=== PATIENT | male | born 1965 | race Two or more races ===

== ENCOUNTER 2017-01-15 09:18 | Emergency (ER) | payer OTHER ==
[~2017-01-15] VITALS: Ht 177.8 cm; Wt 86.2 kg
[2017-01-15 09:22] VITALS: BP 114/69
[2017-01-15] MEDS ORDERED: DEXAMETHASONE SOD PHOSPHATE 10 MG/ML VIAL IM ONE (10:30)
[2017-01-15] MEDS ORDERED: ALBUTEROL FS 2.5 MG/3 ML VIAL.NEB NEB ONE (10:30)
[2017-01-15] MEDS ORDERED: DEXAMETHASONE SOD PHOSPHATE 10 MG/ML VIAL ONE (10:30)
[2017-01-15] MEDS ORDERED: ALBUTEROL FS 2.5 MG/3 ML VIAL.NEB ONE (11:08)
== END 2017-01-15 11:53 | disposition home or self-care (01) ==
LOC: ER 09:21
DX: R05 Cough (principal); F12.90 Cannabis use, unspecified, uncomplicated; I10 Essential (primary) hypertension
CPT/HCPCS: 71010; 94640 ×2; 99284; A4606; J1100; Z7610

== ENCOUNTER 2017-01-17 07:18 | Emergency (ER) | payer OTHER ==
[~2017-01-17] VITALS: Ht 177.8 cm; Wt 88.5 kg
[2017-01-17 07:40] VITALS: BP 103/67
== END 2017-01-17 08:24 | disposition home or self-care (01) ==
LOC: ER 07:21
DX: J40 Bronchitis, not specified as acute or chronic (principal)
CPT/HCPCS: 99283; A4606; Z7610

== ENCOUNTER 2017-10-27 09:00 | Emergency (ER) | payer OTHER ==
[~2017-10-27] VITALS: Ht 177.8 cm; Wt 86.2 kg
[2017-10-27] MEDS ORDERED: LISINOPRIL (10MG) 10 MG TABLET PO SCH (09:30)
[2017-10-27 09:40] VITALS: BP 165/101
--- NOTE | 2017-10-27 09:43 | NUR ---
CALLED PHARMACY FOR LISINOPRIL
== END 2017-10-27 09:50 | disposition home or self-care (01) ==
LOC: ER 09:02
DX: H53.8 Other visual disturbances (principal); I10 Essential (primary) hypertension; Z60.2 Problems related to living alone
CPT/HCPCS: A4606; Z7610

== ENCOUNTER 2017-11-16 08:44 | Emergency (ER) | payer OTHER ==
[~2017-11-16] VITALS: Ht 182.9 cm; Wt 81.6 kg
[2017-11-16 08:49] VITALS: BP 139/90
== END 2017-11-16 09:05 | disposition home or self-care (01) ==
LOC: ER 08:46
DX: Z76.0 Encounter for issue of repeat prescription (principal); I10 Essential (primary) hypertension; Z60.2 Problems related to living alone
CPT/HCPCS: 99283; A4606; Z7610

== ENCOUNTER 2017-12-28 12:19 | Emergency (ER) | payer OTHER ==
[~2017-12-28] VITALS: Ht 177.8 cm; Wt 86.2 kg
[2017-12-28 12:21] VITALS: BP 149/101
--- NOTE | 2017-12-28 12:22 | NUR ---
PATIENT FOR MEDICATION REFILL. PATIENT IS AWAKE AND ALERT. NOT IN DISTRESS. AFEBRILE. VSS,. BP 149/101-- LAST LISINOPRIL WAS 4 DAYS AGO
== END 2017-12-28 12:53 | disposition home or self-care (01) ==
LOC: ER 12:20
DX: Z76.0 Encounter for issue of repeat prescription (principal); I10 Essential (primary) hypertension; Z60.2 Problems related to living alone
CPT/HCPCS: A4606; Z7610

== ENCOUNTER 2019-01-24 08:28 | Emergency (ER) | payer OTHER ==
[~2019-01-24] VITALS: Ht 177.8 cm; Wt 86.2 kg
[2019-01-24 08:32] VITALS: BP 142/87
--- NOTE | 2019-01-24 08:54 | NUR ---
Patient discharged to home in stable condition. Written and verbal after care instructions given. Patient verbalizes understanding of instruction.
== END 2019-01-24 08:54 | disposition home or self-care (01) ==
LOC: ER 08:29
DX: I10 Essential (primary) hypertension (principal); Z76.0 Encounter for issue of repeat prescription; Z60.2 Problems related to living alone

== ENCOUNTER 2019-07-22 10:16 | Emergency (ER) | payer OTHER ==
[~2019-07-22] VITALS: Ht 177.8 cm; Wt 88.5 kg
[2019-07-22 10:26] VITALS: BP 150/94
--- NOTE | 2019-07-22 11:08 | NUR ---
Patient discharged to home in stable condition. Written and verbal after care instructions given. Patient verbalizes understanding of instruction.
== END 2019-07-22 11:09 | disposition home or self-care (01) ==
LOC: ER 10:25
DX: I10 Essential (primary) hypertension (principal); Z76.0 Encounter for issue of repeat prescription; Z60.2 Problems related to living alone